=== PATIENT | female | born 1985 | race Caucasian/White ===

== ENCOUNTER 2016-11-18 05:03 | Inpatient (IN) | payer BC ==
[2016-11-18] MEDS ORDERED: Methylergonovine 0.2 MG/1 ML Amp IM PRN (05:26)
[2016-11-18] MEDS ORDERED: Water For Irrigation,Sterile 1,000 ML Container IRR PRN (05:26)
[2016-11-18] MEDS ORDERED: Carboprost Tromethamine 250 MCG/1 ML Amp IM PRN (05:26)
[2016-11-18] MEDS ORDERED: Terbutaline 1 MG/ML SDV SUBCUT PRN (05:26)
[2016-11-18] MEDS ORDERED: Butorphanol 1 MG/ML SDV IVPUSH PRN (05:26)
[2016-11-18] MEDS ORDERED: Lidocaine 1% 50 ML MDV INJECT PRN (05:26)
[2016-11-18] MEDS ORDERED: Misoprostol 200 MCG Tab PO PRN (05:26)
[2016-11-18] MEDS ORDERED: Oxytocin/Lactated Ringers 30 UNIT/500 ML BAG IV SCH ×2 (05:30→05:45)
[2016-11-18] MEDS ORDERED: Sodium Chloride 0.9% 2.5 ML Syringe FLUSH PRN (05:31)
[2016-11-18] MEDS ORDERED: Sodium Chloride 0.9% 10 ML Syringe FLUSH PRN (05:31)
[2016-11-18] MEDS: Lactated Ringers 1,000 ML IV SCH ×3 (06:15→10:20)
[2016-11-18] MEDS ORDERED: fentaNYL 100 MCG/2 ML SDV ONE (09:35)
[2016-11-18] MEDS ORDERED: Ropivacaine HCl/PF 100 ML ONE (09:36)
--- NOTE | 2016-11-18 09:43 | PCM.PREANE ---
Preanesthetic Assessment - Anesthesia/Transfusion/Family Hx Anesthesia History: Prior Anesthesia Without Reaction Transfusion History: No Prior Transfusion(s) - Review of Systems General: No Symptoms Pulmonary: No Symptoms Cardiovascular: No Symptoms Gastrointestinal: No Symptoms Neurological: No Symptoms Other: Reports: None - Physical Assessment Height: 5 ft 10 in Weight: 127.913 kg ASA Class: 2 Mental Status: Alert & Oriented x3 Airway Class: Mallampati = 2 Dentition: Reports: Normal Dentition Thyro-Mental Finger Breadths: 3 Mouth Opening Finger Breadths: 3 ROM/Head Extension: Full Lungs: Clear to Auscultation, Normal Respiratory Effort Cardiovascular: Regular Rate, Regular Rhythm - Lab Values: Laboratory Last Values WBC 8.79 K/uL (4.0-11.0) 11/18/16 06:13 RBC 4.55 M/uL (4.30-5.90) 11/18/16 06:13 Hgb 14.7 g/dL (12.0-16.0) 11/18/16 06:13 Hct 42.0 % (36.0-46.0) 11/18/16 06:13 MCV 92.3 fL (80.0-98.0) 11/18/16 06:13 MCH 32.3 pg (27.0-32.0) H 11/18/16 06:13 MCHC 35.0 g/dL (31.0-37.0) 11/18/16 06:13 RDW Std Deviation 42.3 fl (28.0-62.0) 11/18/16 06:13 RDW Coeff of Carolee 13 % (11.0-15.0) 11/18/16 06:13 Plt Count 153 K/uL (150-400) 11/18/16 06:13 MPV 11.00 fL (7.40-12.00) 11/18/16 06:13 Nucleated RBC % 0.0 /100WBC 11/18/16 06:13 Nucleated RBCs # 0 K/uL 11/18/16 06:13 Blood Type O POSITIVE 11/18/16 06:13 Antibody Screen NEGATIVE 11/18/16 06:13 - Allergies Allergies/Adverse Reactions: Allergies Allergy/AdvReac Type Severity Reaction Status Date / Time No Known Allergies Allergy Verified 08/29/14 16:08 - Acknowledgements Anesthesia Type Planned: Epidural Pt an Appropriate Candidate for the Planned Anesthesia: Yes Alternatives and Risks of Anesthesia Discussed w Pt/Guardian: Yes Pt/Guardian Understands and Agrees with Anesthesia Plan: Yes PreAnesthesia Questionnaire HEENT History: Reports: None Cardiovascular History: Reports: None Respiratory History: Reports: Asthma Gastrointestinal History: Reports: GERD Genitourinary History: Reports: None VIDEO JOURNALIST History: Reports: : 2 Para: 1 LMP (Approximate): Musculoskeletal History: Reports: None Neurological History: Reports: None Psychiatric History: Reports: Depression Endocrine/Metabolic History: Reports: Obesity/BMI 30+ Hematologic History: Reports: None Immunologic History: Reports: None Oncologic (Cancer) History: Reports: None Dermatologic History: Reports: None - Infectious Disease History Infectious Disease History: Reports: None - Past Surgical History HEENT Surgical History: Reports: Tonsillectomy, Other (See Below) Other HEENT Surgeries/Procedures: tooth extraction GI Surgical History: Reports: Cholecystectomy - SUBSTANCE USE Smoking Status *Q: Never Smoker Second Hand Smoke Exposure: No Recreational Drug Use History: No - HOME MEDS Home Medications: Home Meds Acetaminophen [Tylenol Extra Strength] 500 mg PO Q4H PRN #1 tablet 11/20/14 [Rx] Ibuprofen [Motrin] 800 mg PO Q6H PRN #1 tablet 11/20/14 [Rx] Lanolin [Lansinoh HPA] 1 g TOP ASDIRECTED PRN #1 crm 11/20/14 [Rx] - CURRENT (IN HOUSE) MEDS Current Meds: Current Medications Butorphanol Tartrate (Stadol) 1 mg IVPUSH ASDIRECTED PRN PRN Reason: Pain Carboprost Tromethamine (Hemabate Ds) 250 mcg IM ASDIRECTED PRN PRN Reason: Post Hemorrhage Lactated Ringer's (Ringers, Lactated) 1,000 mls @ 150 mls/hr IV ASDIRECTED DANN Last Admin: 11/18/16 09:32 Dose: 150 mls/hr Oxytocin/Lactated Ringer's (Pitocin In Lr 30 Units/500 Ml) 30 unit in 500 mls @ 2 mls/hr IV TITRATE DANN; 2 MUNITS/MIN PRN Reason: Protocol Last Titration: 11/18/16 09:12 Dose: 18 munits/min, 18 mls/hr Lidocaine HCl (Xylocaine 1%) 50 ml INJECT .ONCE PRN PRN Reason: Laceration repair Methylergonovine Maleate (Methergine) 0.2 mg IM ASDIRECTED PRN PRN Reason: Post Hemorrhage Misoprostol (Cytotec) 200 mcg PO .ONCE PRN PRN Reason: Post Hemorrhage Sodium Chloride (Saline Flush) 10 ml FLUSH ASDIRECTED PRN PRN Reason: Keep Vein Open Sodium Chloride (Saline Flush) 2.5 ml FLUSH ASDIRECTED PRN PRN Reason: Keep Vein Open Sterile Water (Sterile Water For Irrigation) 1,000 ml IRR ASDIRECTED PRN PRN Reason: delivery Terbutaline Sulfate (Brethine) 0.25 mg SUBCUT ASDIRECTED PRN PRN Reason: Tacysystole Discontinued Medications Fentanyl (Sublimaze) Confirm Administered Dose 100 mcg .ROUTE .STK-MED ONE Stop: 11/18/16 09:36 Oxytocin/Lactated Ringer's (Pitocin In Lr 30 Units/500 Ml) 30 unit in 500 mls @ 999 mls/hr IV ASDIRECTED DANN PRN Reason: 999 MUNITS/MIN Stop: 11/18/16 06:16 Ropivacaine (Naropin 0.2%) Confirm Administered Dose 100 mls @ as directed .ROUTE .STK-MED ONE Stop: 11/18/16 09:37
[2016-11-18] MEDS ORDERED: Ibuprofen 800 MG Tab PO PRN (13:34)
[2016-11-18] MEDS ORDERED: Ibuprofen 400 MG Tab PO PRN (13:34)
[2016-11-18] MEDS ORDERED: oxyCODONE 5 MG Tab PO PRN (13:34)
[2016-11-18] MEDS ORDERED: Acetaminophen 500 MG Tab PO PRN (13:34)
[2016-11-18] MEDS ORDERED: Lanolin 100% Cream 7 GM Tube TOP PRN (13:34)
[2016-11-18] MEDS ORDERED: Bisacodyl 10 MG Supp RECTAL PRN (13:34)
[2016-11-18] MEDS ORDERED: Benzocaine/Menthol 20%-0.5% Spray 78 GM Cannister TOP PRN (13:34)
[2016-11-18] MEDS ORDERED: Docusate Sodium 100 MG Cap PO PRN (13:34)
[2016-11-18] MEDS ORDERED: Witch Hazel Medicated Pads 40/Jar TOP PRN (13:34)
[2016-11-18] MEDS: Acetaminophen 500 MG Tab PO PRN ×2 (15:27→22:59)
--- NOTE | 2016-11-18 19:54 | OR ---
SURGEON: Rox Mcconnell M.D. DATE OF PROCEDURE: 11/18/2016 Delivery note. PREOPERATIVE DIAGNOSES: 1. 39 and 3 weeks intrauterine . 2. Elective induction of labor. POSTOPERATIVE DIAGNOSES: 1. 39 and 3 weeks intrauterine . 2. Elective induction of labor. PROCEDURE: Spontaneous vaginal delivery, first-degree periurethral midline laceration repair, precipitous delivery. ESTIMATED BLOOD LOSS: 400 mL. ANESTHESIA: Epidural. COMPLICATIONS: None. FINDINGS: Term female, score 8 at 1 minute, 9 at 5 minutes. Weight is pending. Spontaneous delivery, intact placenta, 3-vessel cord. DISPOSITION: Infant to nursery, mom in LDRP, stable. DESCRIPTION OF PROCEDURE: Ramona is a 31-year-old, G2, P1, at 39 and 3 weeks gestation, presents this morning for scheduled induction of labor per patient's request. Risks of the procedure have been discussed with her, proper consent has obtained. The patient presented, reactive NST obtained. Initiated Pitocin induction, responded nicely to this. Shortly after 9:00 a.m., the patient was rhonda every 1 to 2 minutes, mild, she was 3 cm, 80% effaced, -2 station. Therefore, she underwent regional anesthesia in the form of epidural, became more comfortable. Shortly before 11:00 a.m., amniotomy was performed, large amount of clear fluid was returned. The patient continued to progress shortly after noon around 12:20, she was found to be 5 cm dilated. The patient progressed quickly to complete. I was called at 12:54 p.m. before delivery and upon my arrival, the had delivered precipitously--was swaddled in mother's arms with attending nursing staff at her side. Cord had been clamped x2 and cut. Therefore an ABG, venous blood, cord blood gases were obtained. Light suprapubic pressure was applied while the placenta was delivered spontaneously intact. Vigorous fundal uterine massage was then applied while 20 units of Pitocin was delivered in 500 mL of IV fluid. Upon inspection of cervix, vaginal sidewalls, and perineum, there was found to be a first-degree midline perineal laceration repaired using 3-0 Vicryl. There was also a first-degree periurethral laceration along the 12 o'clock position that was bleeding fairly profusely, this was repaired using 3-0 Vicryl in continuous running fashion. Hemostasis remained evident. The Rodriguez catheter was introduced to help and ensure patency of the urethra, it does remain patent. Hemostasis now evident. Sponge, instrument, and needle counts correct x2. The patient has tolerated the procedure well, she will remain in LDRP, in nursery. DOLORES / JOVANNY /[id number] MENA
[2016-11-19] MEDS: Acetaminophen 500 MG Tab PO PRN ×2 (04:38→10:55)
[2016-11-19 04:49] VITALS: BP 124/58
--- NOTE | 2016-11-19 08:06 | PCM.PNPP ---
- General Info Date of Service: 11/19/16 Functional Status: Reports: Pain Controlled, Tolerating Diet, Ambulating, Urinating - Review of Systems General: Denies: Fever, Weakness Pulmonary: Denies: Shortness of Breath Cardiovascular: Denies: Chest Pain, Palpitations, Lightheadedness Gastrointestinal: Denies: Abdominal Pain, Nausea, Vomiting Genitourinary: Denies: Flank Pain Skin: Reports: No Symptoms Psychiatric: Reports: No Symptoms - General Info Date of Service: 11/19/16 - Patient Data Vital Signs - Most Recent: Last Vital Signs Temp 36.2 C 11/19/16 04:46 Pulse 82 11/19/16 04:46 Resp 14 11/19/16 04:46 BP 124/58 L 11/19/16 04:46 Pulse Ox 96 11/19/16 04:46 Weight - Most Recent: 127.913 kg Lab Results - Last 24 Hours: Laboratory Results - last 24 hr 11/19/16 Range/Units 05:03 Hgb 11.3 L (12.0-16.0) g/dL Hct 33.4 L (36.0-46.0) % Med Orders - Current: Current Medications Acetaminophen (Tylenol Extra Strength) 500 mg PO Q4H PRN PRN Reason: Pain Acetaminophen (Tylenol Extra Strength) 1,000 mg PO Q4H PRN PRN Reason: Pain Last Admin: 11/19/16 04:38 Dose: 1,000 mg Benzocaine/Menthol (Dermoplast Pain Relief 20%-0.5% Bradford) 78 gm TOP ASDIRECTED PRN PRN Reason: Perineal Comfort Measure Last Admin: 11/18/16 15:59 Dose: 1 canister Bisacodyl (Dulcolax) 10 mg RECTAL .ONCE PRN PRN Reason: Constipation Carboprost Tromethamine (Hemabate Ds) 250 mcg IM ASDIRECTED PRN PRN Reason: Post Hemorrhage Docusate Sodium (Colace) 100 mg PO BID PRN PRN Reason: Constipation Emollient Ointment (Lansinoh Hpa) 0 gm TOP ASDIRECTED PRN PRN Reason: Sore Nipples Lactated Ringer's (Ringers, Lactated) 1,000 mls @ 150 mls/hr IV ASDIRECTED DANN Last Admin: 11/18/16 10:20 Dose: 999 mls/hr Oxytocin/Lactated Ringer's (Pitocin In Lr 30 Units/500 Ml) 30 unit in 500 mls @ 2 mls/hr IV TITRATE DANN; 2 MUNITS/MIN PRN Reason: Protocol Last Titration: 11/18/16 13:55 Dose: Infused Ibuprofen (Motrin) 400 mg PO Q4H PRN PRN Reason: Pain Last Admin: 11/18/16 17:28 Dose: 400 mg Ibuprofen (Motrin) 800 mg PO Q6H PRN PRN Reason: Pain Last Admin: 11/19/16 07:42 Dose: 800 mg Lidocaine HCl (Xylocaine 1%) 50 ml INJECT .ONCE PRN PRN Reason: Laceration repair Methylergonovine Maleate (Methergine) 0.2 mg IM ASDIRECTED PRN PRN Reason: Post Hemorrhage Oxycodone HCl (Oxycodone) 5 mg PO Q2H PRN PRN Reason: Pain Sodium Chloride (Saline Flush) 10 ml FLUSH ASDIRECTED PRN PRN Reason: Keep Vein Open Sodium Chloride (Saline Flush) 2.5 ml FLUSH ASDIRECTED PRN PRN Reason: Keep Vein Open Witch Roxi (Tucks) 1 pad TOP ASDIRECTED PRN PRN Reason: comfort care Discontinued Medications Butorphanol Tartrate (Stadol) 1 mg IVPUSH ASDIRECTED PRN PRN Reason: Pain Fentanyl (Sublimaze) Confirm Administered Dose 100 mcg .ROUTE .STK-MED ONE Stop: 11/18/16 09:36 Oxytocin/Lactated Ringer's (Pitocin In Lr 30 Units/500 Ml) 30 unit in 500 mls @ 999 mls/hr IV ASDIRECTED DANN PRN Reason: 999 MUNITS/MIN Stop: 11/18/16 06:16 Ropivacaine (Naropin 0.2%) Confirm Administered Dose 100 mls @ as directed .ROUTE .STK-MED ONE Stop: 11/18/16 09:37 Misoprostol (Cytotec) 200 mcg PO .ONCE PRN PRN Reason: Post Hemorrhage Sterile Water (Sterile Water For Irrigation) 1,000 ml IRR ASDIRECTED PRN PRN Reason: delivery Last Admin: 11/18/16 13:10 Dose: 1,000 ml Terbutaline Sulfate (Brethine) 0.25 mg SUBCUT ASDIRECTED PRN PRN Reason: Tacysystole - Interaction Disposition, : in Room with Family Infant Interaction: Holding Infant Infant Feeding: Breastfed Infant; Nursed Well Support Person: - Recovery Exam Fundal Tone: Firm Fundal Level: At Umbilicus Fundal Placement: Midline Lochia Amount: Scant Lochia Color: Rubra/Red Perineum Description: Intact, Minimal Bruising/Swelling Episiotomy/Laceration: Approximated Bladder Status: Nonpalpable, Voiding Urinary Elimination: Voided - Exam General: Alert, Oriented Lungs: Normal Respiratory Effort Cardiovascular: Regular Rate, Regular Rhythm GI/Abdominal Exam: Normal Bowel Sounds, Soft Extremities: Normal Inspection, Pedal Edema (trace) Skin: Warm, Dry, Intact Psy/Mental Status: Alert, Normal Affect - Problem List & Annotations (1) Vaginal delivery SNOMED Code(s): 759398318 Code(s): O80 - ENCOUNTER FOR FULL-TERM UNCOMPLICATED DELIVERY Status: Acute Current Visit: Yes - Problem List Review Problem List Initiated/Reviewed/Updated: Yes - My Orders Last 24 Hours: My Active Orders 11/18/16 13:34 May Shower [RC] ASDIRECTED Up ad Mey [RC] ASDIRECTED Vital Signs [RC] PER UNIT ROUTINE Acetaminophen [Tylenol Extra Strength] 1,000 mg PO Q4H PRN Acetaminophen [Tylenol Extra Strength] 500 mg PO Q4H PRN Benzocaine/Menthol [Dermoplast Pain Relief 20%-0.5% Bradford] 78 gm TOP ASDIRECTED PRN Bisacodyl [Dulcolax] 10 mg RECTAL .ONCE PRN Docusate Sodium [Colace] 100 mg PO BID PRN Ibuprofen [Motrin] 400 mg PO Q4H PRN Ibuprofen [Motrin] 800 mg PO Q6H PRN Lanolin [Lansinoh HPA] See Dose Instructions TOP ASDIRECTED PRN Witch Roxi [Tucks] 1 pad TOP ASDIRECTED PRN oxyCODONE 5 mg PO Q2H PRN Assess Lochia [WOMSER] Per Unit Routine Assess Uterine Involution [WOMSER] Per Unit Routine Breast Pump [WOMSER] Per Unit Routine Ice Therapy [OM.PC] Per Unit Routine Perineal Care [OM.PC] Per Unit Routine Peripheral IV Discontinue [OM.PC] Routine Sitz Bath [OM.PC] Per Unit Routine 11/18/16 Lunch Regular Diet [DIET] 11/19/16 08:03 Ready for Discharge [RC] PER UNIT ROUTINE - Assessment Assessment:: PPD 1 status post /1st laceration repaired - Plan Plan:: Discharge to home today. Discharge instructions reviewed. Follow up at [facility] 6 weeks. Infection and bleeding warnings reviewed.
== END 2016-11-19 16:45 | disposition home or self-care (01) | DRG 560 ==
LOC: MW.OBCHECK 05:03 → MW.OB 05:06 → MW.OBCHECK 05:26 → MW.OB 13:05 → OBSVTOIN 13:05
PROVIDERS: ADMIT Obstetrics & Gynecology; ATTEND Obstetrics & Gynecology
PROC: 10E0XZZ Delivery of Products of Conception, External Approach (ICD-10-PCS; principal; 2016-11-18)
PROC: 3E033VJ Introduction of Other Hormone into Peripheral Vein, Percutaneous Approach (ICD-10-PCS; 2016-11-18)
PROC: 10907ZC Drainage of Amniotic Fluid, Therapeutic from Products of Conception, Via Natural or Artificial Opening (ICD-10-PCS; 2016-11-18)
PROC: 0HQ9XZZ Repair Perineum Skin, External Approach (ICD-10-PCS; 2016-11-18)
DX: O70.0 First degree perineal laceration during delivery (principal); Z3A.39 39 weeks gestation of pregnancy; Z37.0 Single live birth
CPT/HCPCS: 36415; 59025; 85014; 85018; 85027; 86850; 86900; 86901; A9270-GY; J7120